=== PATIENT | female | born 1960 | race Caucasian/White ===

== ENCOUNTER 2018-09-19 18:16 | Emergency (ER) | payer OTHER ==
[2018-09-19 19:04] VITALS: BP 120/92
--- NOTE | 2018-09-19 19:13 | EDM.PDOC ---
ED HPI GENERAL MEDICAL PROBLEM - General Chief Complaint: General Stated Complaint: WRIST PAIN Time Seen by Provider: 09/19/18 19:04 Source of Information: Reports: Patient - History of Present Illness Onset: Today, Sudden Onset Date: 09/19/18 Onset Time: 15:00 Location: Reports: Upper Extremity, Right Quality: Reports: Ache, Dull Severity: Moderate Improves with: Reports: None Worsens with: Reports: Movement Associated Symptoms: Reports: No Other Symptoms - Related Data Allergies Allergy/AdvReac Type Severity Reaction Status Date / Time Penicillins Allergy Cannot Verified 09/19/18 18:48 Remember Home Meds: Home Meds NK [No Known Home Meds] 04/19/15 [History] Past Medical History - Past Health History Medical/Surgical History: Denies Medical/Surgical History HEENT History: Reports: Other (See Below) Other HEENT History: glasses 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 Musculoskeletal: Reports: Arm Pain ED EXAM, GENERAL - Physical Exam Exam: See Below Exam Limited By: No Limitations General Appearance: Alert, WD/WN, No Apparent Distress Eye Exam: Bilateral Eye: Normal Inspection Ears: Normal External Exam Nose: Normal Inspection Throat/Mouth: Normal Inspection Head: Atraumatic, Normocephalic Neck: Normal Inspection Respiratory/Chest: No Respiratory Distress Extremities: Arm Pain (Pain around right wrist. Mild swelling, no deformity or discoloration. Distal CMS intact.) Skin Exam: Warm, Dry, Intact Course - Vital Signs Last Recorded V/S: Last Vital Signs Temp 37.1 C 09/19/18 19:02 Pulse 79 09/19/18 19:02 Resp 16 09/19/18 19:02 BP 120/92 H 09/19/18 19:02 Pulse Ox 98 09/19/18 19:02 - Orders/Labs/Meds Orders: Active Orders 24 hr Category Date Time Status Wrist 2V Rt [CR] Stat Exams 09/19/18 18:53 Taken - Re-Assessments/Exams Free Text/Narrative Re-Assessment/Exam: This patient presents for evaluation of left wrist pain. A broad differential was considered including sprain, strain, fracture, tendon rupture, nerve impingement/compromise, referred pain. X-ray was negative for acute findings. Signs and symptoms are consistent with a wrist sprain. Supportive outpatient management is therefore indicated. Rest, ice, and elevation treatment was discussed with the patient. The patient's remaining exam is otherwise negative, and close follow-up with patient's primary care physician is indicated per discharge precautions. 09/19/18 19:12 Departure - Departure Time of Disposition: 19:15 Disposition: 20 Condition: Good Clinical Impression: Right wrist sprain - Discharge Information *PRESCRIPTION DRUG MONITORING PROGRAM REVIEWED*: Not Applicable *COPY OF PRESCRIPTION DRUG MONITORING REPORT IN PATIENT KARRI: Not Applicable Instructions: Elastic Bandage and RICE Referrals: PCP,None [Primary Care Provider] - Forms: ED Department Discharge Additional Instructions: Keep applied ALYSSA wrap in place for next 2-3 days. Elevate affected right wrist and apply ice intermittently to keep swelling down. May also alternate Tylenol and/or Ibuprofen according to package instructions as needed for pain. Follow up in clinic if needed, call with any questions. - My Orders Last 24 Hours: My Active Orders 09/19/18 18:53 Wrist 2V Rt [CR] Stat - Assessment/Plan Last 24 Hours: My Active Orders 09/19/18 18:53 Wrist 2V Rt [CR] Stat
--- NOTE | 2018-09-21 21:10 | CR ---
DATE OF SERVICE: 09/19/2018 CLINICAL DATA: Fall/pain. RIGHT WRIST: No priors. There is diffuse osteopenia. There is a 3 mm osseous density dorsal to the proximal carpal row on the lateral view consistent with a bony avulsion, age indeterminate. There is diffuse osteopenia. There are mild osteoarthritic changes involving multiple joints. No other significant findings. [id number] [facility]
== END 2018-09-19 19:11 | disposition home or self-care (01) ==
LOC: LB.ED 18:16
DX: S63.501A Unspecified sprain of right wrist, initial encounter (principal); Z88.0 Allergy status to penicillin; X58.XXXA Exposure to other specified factors, initial encounter
CPT/HCPCS: 73100-RT; 99283

== ENCOUNTER 2018-09-20 10:30 | Emergency (ER) | payer OTHER ==
--- NOTE | 2018-09-20 11:08 | PCM.SN ---
- Free Text/Narrative Note: This patient presented to the ED initially on 09/19/18 for evaluation of right wrist pain following a fall. Her initial x-ray was interpreted as negative for acute findings. A radiology overread identified an acute triquetral fracture of the right hand. Contacted patient by phone and discussed findings. She was asked to return to the ED at her convenience today for splinting. On exam, significant bruising over dorsum of hand adjacent to wrist. Some swelling noted as well but no deformity. Distal CMS intact. Ulnar gutter splint applied with orthoglass; excellent CMS after application. Patient instructed to continue supportive care including rest, elevation, and ice to area. She should recheck with PCP in the clinic in 5 days, sooner for any problems or concerns.
== END 2018-09-20 11:00 | disposition home or self-care (01) ==
LOC: LB.ED 10:30
DX: S62.111A Displaced fracture of triquetrum [cuneiform] bone, right wrist, initial encounter for closed fracture (principal); W19.XXXA Unspecified fall, initial encounter
CPT/HCPCS: 29125; 99283-25

== ENCOUNTER 2018-12-29 08:24 | Emergency (ER) | payer OTHER ==
[2018-12-29] MEDS ORDERED: LORazepam 2 MG/ML SDV IVPUSH ONE (08:30)
[2018-12-29] MEDS: methylPREDNISolone Sodium Succinate 125 MG/2 ML SDV IVPUSH ONE (08:31)
[2018-12-29] MEDS: diphenhydrAMINE 50 MG/ML SDV IVPUSH ONE (08:33)
[2018-12-29 09:08] VITALS: BP 163/99
[2018-12-29] MEDS: Cetirizine 10 MG Tab PO ONE (09:22)
[2018-12-29] MEDS: Loratadine 5 MG/5 ML Soln ML (120 ML Bottle) PO SCH (09:31)
--- NOTE | 2018-12-29 13:33 | CR ---
DATE OF SERVICE: 12/29/2018 CLINICAL DATA: Trouble breathing/Epiglottitis?? AP AND LATERAL SOFT TISSUE NECK: The epiglottis appears normal. The visualized airway appears unremarkable. The soft tissues are unremarkable. Mild degenerative disk disease at multiple levels. [id number]
--- NOTE | 2018-12-29 14:03 | EDM.PDOC ---
ED HPI GENERAL MEDICAL PROBLEM - General Chief Complaint: General Stated Complaint: CAN'T BREATH Time Seen by Provider: 12/29/18 08:27 Source of Information: Reports: Patient History Limitations: Reports: No Limitations - History of Present Illness INITIAL COMMENTS - FREE TEXT/NARRATIVE: This is a 58yo F here for concerns of throat swelling and difficultly breathing. She has not had this before but has allergies to her dog which causes her to have itchiness and sneeze. She was away and returned last night and thinks her may have let their dog on their bed. She also has had a sore throat for the past 4 days prior to this episode. 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 ED EXAM, GENERAL - Physical Exam Exam: See Below Exam Limited By: No Limitations General Appearance: Alert, WD/WN, Anxious Eye Exam: Bilateral Eye: EOMI, PERRL Ears: Normal External Exam Nose: Normal Inspection Throat/Mouth: Inflammation, Other (enlarged uvula) Head: Atraumatic, Normocephalic Neck: Normal Inspection Respiratory/Chest: No Respiratory Distress, Lungs Clear, Normal Breath Sounds, No Accessory Muscle Use, Chest Non-Tender Cardiovascular: Normal Peripheral Pulses, Regular Rate, Rhythm Peripheral Pulses: 2+: Dorsalis Pedis (L), Dorsalis Pedis (R) GI/Abdominal: Normal Bowel Sounds Extremities: Normal Inspection Neurological: Alert, Oriented, CN II-XII Intact Psychiatric: Normal Affect, Normal Mood Skin Exam: Warm, Dry, Intact Course - Vital Signs Last Recorded V/S: Last Vital Signs Temp 36.8 C 12/29/18 09:00 Pulse 82 12/29/18 09:00 Resp 22 H 12/29/18 09:00 BP 163/99 H 12/29/18 09:00 Pulse Ox 100 12/29/18 09:00 - Orders/Labs/Meds Meds: Medications Discontinued Medications Generic Name Dose Route Start Last Admin Trade Name Aidee PRN Reason Stop Dose Admin Cetirizine HCl 10 mg 12/29/18 09:18 12/29/18 09:22 Zyrtec PO 12/29/18 09:19 Not Given ONETIME ONE Diphenhydramine HCl 50 mg 12/29/18 08:29 12/29/18 08:33 Benadryl IVPUSH 12/29/18 08:30 50 mg ONETIME ONE Administration Loratadine 10 mg 12/29/18 09:15 12/29/18 09:31 Claritin PO 10 mg DAILY LUIS MIGUEL Administration Lorazepam 0.5 mg 12/29/18 08:30 Ativan IVPUSH 12/29/18 08:31 ONETIME ONE Methylprednisolone Sodium Succinate 125 mg 12/29/18 08:29 12/29/18 08:31 Solu-Medrol IVPUSH 12/29/18 08:30 125 mg ONETIME ONE Administration Departure - Departure Time of Disposition: 11:30 Disposition: Home, Self-Care 01 Condition: Good Clinical Impression: Sore throat, Swollen uvula, Allergy to dogs Pharyngitis Qualifiers: Pharyngitis/tonsillitis etiology: unspecified etiology Qualified Code(s): J02.9 - Acute pharyngitis, unspecified - Discharge Information Instructions: Sore Throat Referrals: PCP,None [Primary Care Provider] - Forms: ED Department Discharge Additional Instructions: Discharge home. Activity: As tolerated Diet: As tolerated, try soft foods for today. Medications: Take Zyrtex 10mg by mouth every 12 hours, Benadryl 50mg at night and Ibuprofen as directed. Follow up with your primary provider as needed. Call or return to the ER if you have any questions or concerns. - Problem List & Annotations (1) Allergy to dogs SNOMED Code(s): 246097838 Code(s): J30.81 - ALLERGIC RHINITIS DUE TO ANIMAL (CAT) (DOG) HAIR AND DANDER Status: Acute Priority: High (2) Pharyngitis SNOMED Code(s): 171146881 Code(s): J02.9 - ACUTE PHARYNGITIS, UNSPECIFIED Status: Acute Priority: Medium Qualifiers: Pharyngitis/tonsillitis etiology: unspecified etiology Qualified Code(s): J02.9 - Acute pharyngitis, unspecified (3) Sore throat SNOMED Code(s): 750721279 Code(s): J02.9 - ACUTE PHARYNGITIS, UNSPECIFIED Status: Acute Priority: Medium (4) Swollen uvula SNOMED Code(s): 147441607 Code(s): R22.1 - LOCALIZED SWELLING, MASS AND LUMP, NECK Status: Acute Priority: High - Problem List Review Problem List Initiated/Reviewed/Updated: Yes - Assessment/Plan Plan: Counseled on use of antihistamines, discussed steroids and patient would like to defer after discussing benefits and side effects. Discussed close monitoring and avoidance of allergic irritants and dog dander/dog itself at this time. Patient to f/u as directed.
== END 2018-12-29 10:07 | disposition home or self-care (01) ==
LOC: LB.ED 08:24
DX: J02.9 Acute pharyngitis, unspecified (principal); Z91.09 Other allergy status, other than to drugs and biological substances; Z87.891 Personal history of nicotine dependence; Z88.0 Allergy status to penicillin
CPT/HCPCS: 70360; 87430; 96374; 96375; 99285; A9270; J1200; J2930

== ENCOUNTER 2023-01-23 10:39 | Emergency (ER) | payer BC, OTHER ==
[2023-01-23 10:57] VITALS: PULSE 75
[2023-01-23 12:10] LABS: BASOPHILS ABSOLUTE AUTO 0.04 K/uL (0.02-0.10); BASOPHILS PERCENT AUTO 0.8 % (0.0-0.5); EOSINOPHILS ABSOLUTE AUTO 0.26 K/uL (0.04-0.40); EOSINOPHILS PERCENT AUTO 5.5 % (1.0-5.0); HEMATOCRIT 39.3 % (37.0-47.0); HEMOGLOBIN 13.3 g/dL (11.5-16.5); LYMPHOCYTES ABSOLUTE AUTO 1.29 K/uL (1.50-4.00); LYMPHOCYTES PERCENT AUTO 27.2 % (20.0-40.0); MEAN CORPUSCULAR HEMOGLOBIN 31.4 pg (27.0-32.0); MEAN CORPUSCULAR HGB CONC 33.8 g/dL (31.0-35.0); MEAN CORPUSCULAR VOLUME 93 fL (76-96); MEAN PLATELET VOLUME 9.5 fL (6.0-10.0); MONOCYTES PERCENT AUTO 10.5 % (3.0-10.0); NEUTROPHILS ABSOLUTE AUTO 2.66 K/uL (2.00-7.50); PLATELET COUNT,PLT 245 K/uL (150-500); RED BLOOD CELL COUNT 4.24 M/uL (3.80-5.80); RED CELL DISTRIBUTION WIDTH 13.8 % (11.0-16.0); WHITE BLOOD CELL COUNT,WBC 4.8 K/uL (4.0-11.0)
[2023-01-23 12:29] LABS: PTT,PARTIAL THROMBOPLSTIN TIME 24.5 SECONDS (24.4-33.2)
[2023-01-23 12:31] LABS: CHOLESTEROL HDL 43 mg/dL (40-60); CHOLESTEROL TOTAL 209 mg/dL (120-200); LACTATE DEHYDROGENASE,LDH 207 U/L (81-234); TRIGLYCERIDES 241 mg/dL (30-150)
[2023-01-23 12:32] LABS: PROTHROMBIN TIME 9.9 sec (9.0-11.5)
[2023-01-23] MEDS ORDERED: hydrALAZINE 10 MG Tab ONE (12:32)
[2023-01-23 12:50] VITALS: BP 174/117
[2023-01-23] MEDS ORDERED: hydrALAZINE 10 MG Tab PO SCH (20:00)
== END 2023-01-23 12:55 | disposition home or self-care (01) ==
LOC: LB.ED 10:39
DX: I11.9 Hypertensive heart disease without heart failure (principal); I10 Essential (primary) hypertension; E66.9 Obesity, unspecified; Z68.37 Body mass index [BMI] 37.0-37.9, adult; Z87.891 Personal history of nicotine dependence; Z88.0 Allergy status to penicillin
CPT/HCPCS: 36415; 82465; 83615; 83718; 84478; 85025; 85610; 85730; 99283; 99284; A9270